=== PATIENT | female | born 1960 | race Caucasian/White ===

== ENCOUNTER → 2017-02-17 | Outpatient (CLI) | payer BC ==
[~2017-02-17] MED LIST: ASPI-232 PO
--- NOTE | 2017-02-17 14:28 | MAMMOGRAPHY REPORT ---
UNILATERAL LEFT DIGITAL DIAGNOSTIC MAMMOGRAM TOMOSYNTHESIS WITH CAD: 02/17/2017 CLINICAL HISTORY: 56-year-old woman presents for follow-up of probably benign grouped microcalcifica tions in the lower outer quadrant of the left breast. TECHNIQUE: Left CC and MLO 2-D digital and tomosynthesis images, spot magnification left CC and ML views were obtained. Current study was also evaluated with a Computer Aided Detection (CAD) system. COMPARISON: Comparison is made to exams dated: 07/17/2016 mammogram and 02/14/2016 mammogram - [facility]. BREAST COMPOSITION: There are scattered areas of fibroglandular density in the left breast. FINDINGS: The parenchymal pattern of the left breast is similar to the 02/14/2016 mammogram. Again seen is a small cluster of punctate monomorphic microcalcifications in the lower outer anterior left breast, that has not significantly changed in number or configuration comparing to the prior spot m agnification views obtained 07/17/2016. No new suspicious mass, architectural distortion or cluster of microcalcifications is seen throughout the left breast. IMPRESSION: ACR-BI-RADS CATEGORY 3: PROBABLY BENIGN The mammographic appearance of the left breast is stable, including a small cluster of punctate mono morphic microcalcifications in the lower outer anterior breast. However, longer stability is needed and repeat diagnostic left mammograms including spot magnification views are recommended in 6 month s. Annual right mammography will be due at that time. These results and recommendations were discussed with the patient at the time of the exam. She tent atively scheduled a follow-up appointment prior to leaving our department. Approximately 10% of breast cancers are not detected with mammography. A negative mammographic repor t should not delay biopsy if a clinically suggestive mass is present. Elmira Veloz M.D. ay/:02/17/2017 08:35:48 Credit [employer] Lo[employer] Officer: Mela CULVER(Haylee)([place]), [facility] letter sent: Follow Up Recommended 3 BI-RADS Code: ACR-BI-RADS Category 3: Probably Benign
== END | disposition home or self-care (01) ==
LOC: C.MAMM 07:59
PROVIDERS: ATTEND Nurse Practitioner
DX: R92.0 Mammographic microcalcification found on diagnostic imaging of breast (principal)

== ENCOUNTER → 2017-08-18 | Outpatient (CLI) | payer BC ==
--- NOTE | 2017-08-18 15:51 | MAMMOGRAPHY REPORT ---
BILATERAL DIGITAL DIAGNOSTIC MAMMOGRAM TOMOSYNTHESIS WITH CAD: 08/18/2017 CLINICAL HISTORY: 57 year-old woman presents for follow-up in the left breast for a grouping of punct ate microcalcifications. Also due for annual right mammography. TECHNIQUE: Bilateral breast tomosynthesis in addition to standard 2D mammography was performed. Spot magnification CC and ML views of each breast were also obtained. Current study was also evaluated w ith a Computer Aided Detection (CAD) system. COMPARISON: Comparison is made to exams dated: 07/17/2016 mammogram, 02/17/2017 mammogram, and 02/14/20 16 mammogram - [facility]. BREAST COMPOSITION: There are scattered areas of fibroglandular density in both breasts. FINDINGS: The breast parenchymal pattern is similar to prior mammograms. Grouped punctate microcalci fications are again seen in the lower outer left breast. Punctate microcalcifications in the right u pper outer quadrant appeared increased in number comparing to prior mammograms and therefore addition al spot magnification views were obtained bilaterally. The microcalcifications in the right upper ou ter quadrant are somewhat smudgy on the spot magnification CC view and some demonstrate layering on t he spot magnification ML view, confirming benign milk of calcium. The grouped punctate microcalcific ations in the left lower outer breast have not significantly changed in number or configuration jamie ring back to spot magnification views obtained on 07/17/2016 and most likely represent benign fibrocy stic change. However, another 12 month follow-up bilateral diagnostic mammogram including spot magni fication views in both breasts is recommended to ensure longer stability. No other new suspicious ma ss, asymmetry, focal area of architectural distortion or new calcifications are identified bilaterall y. IMPRESSION: ACR-BI-RADS CATEGORY 3: PROBABLY BENIGN Stable bilateral mammograms, including benign-appearing groupings of punctate microcalcifications in each breast. Another 12 month follow-up bilateral diagnostic mammogram including spot magnification views is recommended to ensure longer stability. These results and recommendations were discussed with the patient at the time of the exam. She tenta tively scheduled the follow-up appointment prior to leaving our department. Approximately 10% of breast cancers are not detected with mammography. A negative mammographic report should not delay biopsy if a clinically suggestive mass is present. Elmira Veloz M.D. ay/:08/18/2017 14:48:10 Fire Eater: Lauryn Banegas RT(R)(M), [facility] letter sent: Follow Up Recommended 3 BI-RADS Code: ACR-BI-RADS Category 3: Probably Benign
== END | disposition home or self-care (01) ==
LOC: C.MAMM 13:49
PROVIDERS: ATTEND Nurse Practitioner
DX: R92.0 Mammographic microcalcification found on diagnostic imaging of breast (principal)

== ENCOUNTER → 2018-02-12 | Outpatient (CLI) | payer OTHER | END | disposition home or self-care (01) | LOC: C.LAB1850 15:38 | PROVIDERS: ATTEND Internal Medicine | DX: R22.1 Localized swelling, mass and lump, neck (principal); R53.83 Other fatigue ==

== ENCOUNTER → 2018-02-18 | Outpatient (CLI) | payer OTHER ==
--- NOTE | 2018-02-18 11:42 | DIAGNOSTIC IMAGING REPORT ---
ULTRASOUND OF THE THYROID GLAND CLINICAL HISTORY: Neck nodule. COMPARISON STUDY: No priors. TECHNIQUE: Real-time, grayscale, and color flow sonography of the thyroid gland is performed utilizing a high-frequency linear transducer. Images are reviewed in the transverse and longitudinal planes. FINDINGS: Right lobe: The right lobe of the thyroid gland is normal in size and homogeneous in echotexture, measuring 5.5 x 1.5 x 1.6 cm. A honeycomb nodule in the midpole measures 1.0 x 0.6 x 1.2 cm. Additional subcentimeter hypoechoic nodules in the right lobe measure up to 5 mm. Left lobe: The left lobe of the thyroid gland is normal in size and homogeneous in echotexture, measuring 4.5 x 1.3 x 1.3 cm. A honeycomb nodule in the upper pole measures 0.8 x 0.7 x 0.7 cm. Additional hypoechoic nodules are noted measuring up to 5 mm. Isthmus: The thyroid isthmus is normal in appearance and measures 0.3 cm in AP diameter. Soft tissues: The finding of palpable concern corresponds to a 7 mm hypoechoic nodule in the right submandibular gland. IMPRESSION: 1. There are scattered low suspicion thyroid nodules as above measuring up to 1.2 cm. These do not meet sonographic criteria for fine-needle aspiration. 2. The finding of palpable concern corresponds to a pathologically indeterminant 7 mm hypoechoic nodule in the right submandibular gland. Electronically signed by: Anselmo Meyers M.D. 02/18/2018 11:40 AM Dictated Date/Time: 02/18/2018 11:34 AM
== END | disposition home or self-care (01) ==
LOC: C.ULTRBC 10:24
PROVIDERS: ATTEND Internal Medicine
DX: R22.1 Localized swelling, mass and lump, neck (principal)

== ENCOUNTER → 2018-02-19 | Outpatient (CLI) | payer OTHER ==
[2018-02-24 12:17] LABS: ANA SCREEN TC 249X NEGATIVE (NEGATIVE); MICROSOMAL AB <1 IU/ML (<9); TSI <89 % baseline (<140)
== END | disposition home or self-care (01) ==
LOC: C.LAB1850 12:02
PROVIDERS: ATTEND Internal Medicine
DX: R89.9 Unspecified abnormal finding in specimens from other organs, systems and tissues (principal); M26.9 Dentofacial anomaly, unspecified; R60.9 Edema, unspecified; E04.2 Nontoxic multinodular goiter